=== PATIENT | male | born 1965 | race Caucasian/White ===

== ENCOUNTER 2018-02-16 08:45 | Emergency (ER) | payer BC, OTHER ==
[2018-02-16 09:16] VITALS: TEMP 98
--- NOTE | 2018-02-16 09:24 | ED PDOC ---
Arrival/HPI - General Chief Complaint: Male Genitourinary Time Seen by Provider: 02/16/18 09:18 Historian: Patient - History of Present Illness Narrative History of Present Illness (Text): 02/16/18 09:18 52 y/o male, pmh including dm, nkda, c/o bloody urine started yesterday with no fall or trauma. Pt. stated that he has pink color urine which progress to dark color urine started this morning, no flank or back pain, no nausea or vomiting, no flank pain, no urinary symptoms, no low back pain, no night sweat, no change in food diet or drinks, no other medical or psychological complaints. Past Medical History - Provider Review Nursing Documentation Reviewed: Yes - Infectious Disease Hx of Infectious Diseases: None - Cardiac Hx Cardiac Disorders: No - Pulmonary Hx Respiratory Disorders: No - Endocrine/Metabolic Hx Diabetes Mellitus Type 2: Yes - Hematological/Oncological Hx Blood Disorders: No - Musculoskeletal/Rheumatological Hx Musculoskeletal Disorders: No - Gastrointestinal Hx Gastrointestinal Disorders: No - Genitourinary/Gynecological Hx Genitourinary Disorders: No - Psychiatric Hx Substance Use: No - Anesthesia Hx Anesthesia: No Family/Social History - Physician Review Nursing Documentation Reviewed: Yes Family/Social History: Unknown Family HX Smoking Status: Unknown If Ever Smoked Hx Alcohol Use: No Hx Substance Use: No Allergies/Home Meds Allergies/Adverse Reactions: Allergies No Known Allergies Allergy (Verified 02/16/18 09:12) Home Medications: Home Meds Medication Instructions Recorded Confirmed Ergocalciferol (Vitamin D2) 50,000 unit PO QWK 02/16/18 02/16/18 [Vitamin D2] Folic Acid 1 mg PO DAILY 02/16/18 02/16/18 Glimepiride [amaRYL] 4 mg PO DAILY 02/16/18 02/16/18 Glyburide [Micronase] 5 mg PO DAILY 02/16/18 02/16/18 Lisinopril [Zestril] 2.5 mg PO DAILY 02/16/18 02/16/18 Magnesium Oxide [Magnesium] 400 mg PO DAILY 02/16/18 02/16/18 MetFORMIN [glucoPHAGE] 1,000 mg PO BID 02/16/18 02/16/18 Simvastatin [Zocor] 20 mg PO DAILY 02/16/18 02/16/18 metFORMIN [glucOPHAGE] 500 mg PO DAILY 02/16/18 02/16/18 Review of Systems - Review of Systems Constitutional: absent: Fatigue, Fevers Eyes: absent: Vision Changes ENT: absent: Hearing Changes Respiratory: absent: SOB, Cough Cardiovascular: absent: Chest Pain Gastrointestinal: absent: Abdominal Pain, Nausea, Vomiting Genitourinary Male: Hematuria. absent: Dysuria, Frequency, Urinary Output Changes Musculoskeletal: absent: Arthralgias, Back Pain Skin: absent: Rash, Pruritis, Skin Lesions, Laceration, Ulcer, Cellulitis Neurological: absent: Headache, Dizziness Psychiatric: absent: Anxiety, Depression, Suicidal Ideation Physical Exam Vital Signs Reviewed: Yes Vital Signs Temp Pulse Resp BP Pulse Ox 02/16/18 09:09 98 F 77 16 124/78 97 Temperature: Afebrile Blood Pressure: Normal Pulse: Regular Respiratory Rate: Normal Appearance: Positive for: Well-Appearing, Non-Toxic, Comfortable Pain Distress: None Mental Status: Positive for: Alert and Oriented X 3 - Systems Exam Head: Present: Atraumatic, Normocephalic Pupils: Present: PERRL Extroacular Muscles: Present: EOMI Conjunctiva: Present: Normal Mouth: Present: Moist Mucous Membranes Neck: Present: Normal Range of Motion Respiratory/Chest: Present: Clear to Auscultation, Good Air Exchange. No: Respiratory Distress, Accessory Muscle Use Cardiovascular: Present: Regular Rate and Rhythm, Normal S1, S2. No: Murmurs Abdomen: No: Tenderness, Distention, Peritoneal Signs, Rebound, Guarding Genitourinary Male: Present: Normal External Genitalia, Circumcised Penis, Other (no ecchymosis. ). No: Lesions, Penile Discharge, Testicle Tenderness, Penile Swelling, Masses, Erythema, Hernias, Testicle Swelling Back: Present: Normal Inspection Upper Extremity: Present: Normal Inspection, Normal ROM, Neurovascularly Intact. No: Cyanosis, Edema, Deformity Lower Extremity: Present: Normal Inspection, Normal ROM, Neurovascularly Intact. No: Edema, Deformity Neurological: Present: GCS=15, CN II-XII Intact, Speech Normal, Motor Func Grossly Intact, Gait Normal, Memory Normal Skin: Present: Warm, Dry, Normal Color. No: Rashes Psychiatric: Present: Alert, Oriented x 3, Normal Insight, Normal Concentration Medical Decision Making ED Course and Treatment: 02/16/18 09:28 Differential: Cystitis vs. Renal failure vs. Anemia vs. Food coloring vs. Rhabdomylosis vs. Bladder cancer -labs/ua -Observe and reassess 02/16/18 10:14 -Labs are non-significant except wbc 12.5, afebrile, likely stress induced. -UA show +leukocyte with +wbc, +hematuria, likely cystitis, IV rocephine and urine culture order. -Urine color is clear yellow in the ER, no active bleeding, no blood noted on the underwear and not on the penis meatus either. -Pt. eating and drinking well, afebrile, vitally stable, stable for outpatient follow up. -Discharge home with keflex, stay hydrated, repeat UA after the completion of antibiotic, persistent bloody urine would need urologist follow up to ensure this is not cancerous etiology, follow up with your own pmd within 2 days, return to the ER for any new or worsening signs or symptoms. - Lab Interpretations Lab Results: 02/16/18 09:46 02/16/18 09:46 Lab Results 02/16/18 09:46: Urine Color Yellow, Urine Appearance Clear, Urine pH 6.0, Ur Specific [place] <= 1.005, Urine Protein Trace H, Urine Glucose (UA) 100 H, Urine Ketones Negative, Urine Blood Large H, Urine Nitrate Negative, Urine Bilirubin Negative, Urine Urobilinogen 0.2, Ur Leukocyte Esterase Moderate H, Urine RBC 2 - 5, Urine WBC 25 - 30, Ur Epithelial Cells 0 - 2, Urine Bacteria Small 02/16/18 09:46: WBC 12.5 H, RBC 5.07, Hgb 14.7, Hct 41.5 L, MCV 81.9, MCH 29.0, MCHC 35.4, RDW 12.6, Plt Count 230, MPV 9.3, Gran % 75.7 H, Lymph % (Auto) 12.9 L, [place] % (Auto) 7.2 H, Eos % (Auto) 3.7, Baso % (Auto) 0.5, Gran # 9.42 H, Lymph # (Auto) 1.6, [place] # (Auto) 0.9 H, Eos # (Auto) 0.5, Baso # (Auto) 0.06 02/16/18 09:46: Sodium 140, Potassium 4.9, Chloride 100, Carbon Dioxide 28, Anion Gap 17, BUN 17, Creatinine 0.9, Est GFR ( Amer) > 60, Est GFR (Non- Af Amer) > 60, Random Glucose 193 H, Calcium 9.9, Total Bilirubin 0.5, AST 20, ALT 34, Alkaline Phosphatase 60, Total Creatine Kinase 153, Total Protein 7.6, Albumin 4.7, Globulin 2.9, Albumin/Globulin Ratio 1.6 I have reviewed the lab results: Yes - Medication Orders Current Medication Orders: Ceftriaxone Sodium (Rocephin 1 Gram Ivpb) 1 gm in 100 mls @ 200 mls/hr IVPB STAT STA PRN Reason: Protocol Stop: 02/16/18 10:41 Last Admin: 02/16/18 10:16 Dose: 200 mls/hr eMAR Start Stop Document 02/16/18 10:16 GMD (Rec: 02/16/18 10:16 GMD [id number]) Intravenous Solution Start Date 02/16/18 Start Time 10:16 End Date 02/16/18 End time 10:46 Total Infusion Time 30 - 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 Disposition/Present on Arrival - Present on Arrival Any Indicators Present on Arrival: No History of DVT/PE: No History of Uncontrolled Diabetes: No Urinary Catheter: No History of Decub. Ulcer: No History Surgical Site Infection Following: None - Disposition Have Diagnosis and Disposition been Completed?: Yes Diagnosis: UTI (urinary tract infection), Hematuria Disposition: HOME/ ROUTINE Disposition Time: 10:16 Patient Plan: Discharge Patient Problems: Current Active Problems Problem Status Onset Hematuria Acute UTI (urinary tract infection) Acute Condition: GOOD Additional Instructions: -Discharge home with keflex, stay hydrated, repeat UA after the completion of antibiotic, persistent bloody urine would need urologist follow up to ensure this is not cancerous etiology, follow up with your own pmd within 2 days, return to the ER for any new or worsening signs or symptoms. Prescriptions: Cephalexin [Keflex] 500 mg PO TID #21 capsule Referrals: Denzel Cortez MD [Staff Provider] - Follow up with primary [facility] [place] [[place]] - Follow up with primary Forms: [employer] (Belarusian), WORK NOTE
[2018-02-16 10:03] LABS: BASO # 0.06 K/mm3 (0.0-2.0); BASO % 0.5 % (0.0-3.0); EOS # 0.5 (0.0-0.7); EOS % 3.7 % (1.5-5.0); GRAN # 9.42 (1.4-6.5); GRAN % 75.7 % (50.0-68.0); HEMOGLOBIN 14.7 g/dL (14.0-18.0); LYMPH # 1.6 (1.2-3.4); LYMPH % 12.9 % (22.0-35.0); MEAN CELL VOLUME 81.9 fl (80.0-105.0); MEAN CORPUSCULAR HGB CONC 35.4 g/dl (31.0-37.0); MEAN PLATELET VOLUME 9.3 fl (7.0-11.0); MONO # 0.9 (0.1-0.6); MONO % 7.2 % (1.0-6.0); RBC 5.07 10^6/uL (3.5-6.1); RED CELL DISTRIBUTION WIDTH 12.6 % (11.5-14.5); URINE BILIRUBIN NEGATIVE (NEGATIVE); URINE BLOOD LARGE (NEGATIVE); URINE GLUCOSE (UA) 100 mg/dL (NEGATIVE); URINE LEUKOCYTE ESTERASE MODERATE Leu/uL (NEGATIVE); URINE PROTEIN TRACE mg/dL (<30 mg/dL); URINE UROBILINOGEN 0.2 E.U./dL (<1 E.U./dL); WHITE BLOOD COUNT 12.5 10^3/ul (4.5-11.0)
[2018-02-16 10:04] LABS: URINE APPEARANCE CLEAR (CLEAR); URINE COLOR YELLOW (YELLOW)
[2018-02-16 10:10] LABS: ALB/GLOB RATIO 1.6 (1.1-1.8); ALBUMIN 4.7 g/dL (3.0-4.8); ALT/SGPT 34 U/L (7-56); AST/SGOT 20 U/L (17-59); BLOOD UREA NITROGEN 17 mg/dL (7-21); CALCIUM 9.9 mg/dL (8.4-10.5); GFR AFRICAN-AMERICAN > 60; GFR NON-AFRICAN AMERICAN > 60
[2018-02-16 10:12] LABS: URINE BACTERIA SMALL (NEG); URINE EPITHELIAL CELLS 0 - 2 /hpf (0-5); URINE WBC 25 - 30 /hpf (0-6)
[2018-02-16] MEDS ORDERED: cefTRIAXone 1 gm 1 GM/100 ML BAG IVPB STA (10:12)
[2018-02-16 10:57] VITALS: BP 118/78; PULSE 70; RESP 18; O2SAT 99
== END 2018-02-16 10:57 | disposition home or self-care (01) ==
LOC: ED 08:45
DX: N39.0 Urinary tract infection, site not specified (principal); R31.9 Hematuria, unspecified; E11.9 Type 2 diabetes mellitus without complications
CPT/HCPCS: 80053; 81001; 82550; 85025; 87086; 96365; 99284; J0696

== ENCOUNTER 2018-06-18 19:48 | Observation (INO) | payer OTHER ==
[2018-06-18 20:46] LABS: BASO # 0.06 K/mm3 (0.0-2.0); BASO % 0.7 % (0.0-3.0); EOS # 0.6 (0.0-0.7); EOS % 6.8 % (1.5-5.0); GRAN # 4.21 (1.4-6.5); GRAN % 50.3 % (50.0-68.0); HEMOGLOBIN 13.6 g/dL (14.0-18.0); LYMPH # 3.1 (1.2-3.4); LYMPH % 36.4 % (22.0-35.0); MEAN CELL VOLUME 84.1 fl (80.0-105.0); MEAN CORPUSCULAR HEMOGLOBIN 28.8 pg (25.0-35.0); MEAN CORPUSCULAR HGB CONC 34.3 g/dl (31.0-37.0); MEAN PLATELET VOLUME 9.9 fl (7.0-11.0); MONO # 0.5 (0.1-0.6); MONO % 5.8 % (1.0-6.0); RBC 4.72 10^6/uL (3.5-6.1); RED CELL DISTRIBUTION WIDTH 12.5 % (11.5-14.5); WHITE BLOOD COUNT 8.4 10^3/uL (4.5-11.0)
--- NOTE | 2018-06-18 20:51 | ED PDOC ---
Arrival/HPI - General Chief Complaint: Chest Pain Historian: Patient - History of Present Illness Narrative History of Present Illness (Text): 06/18/18 20:47 52yo male with pmhx of NIDDM, hypertension, hyperlipdemia, who present with complaint of left sided chest pain since earlier today.He describes pain as heaviness and pressure. He did not take any medication. Reports significant familial cardiac history. He denies nausea, vomiting, diaphoresis, dizziness, focal weakness, ripping/tearing upper back pain, abdominal pain, LE edema, calf pain, visual changes, any other complaint. Past Medical History - Provider Review Nursing Documentation Reviewed: Yes - Infectious Disease Hx of Infectious Diseases: None - Cardiac Hx Cardiac Disorders: No - Pulmonary Hx Respiratory Disorders: No - Endocrine/Metabolic Hx Diabetes Mellitus Type 2: Yes - Hematological/Oncological Hx Blood Disorders: No - Musculoskeletal/Rheumatological Hx Musculoskeletal Disorders: No - Gastrointestinal Hx Gastrointestinal Disorders: No - Genitourinary/Gynecological Hx Genitourinary Disorders: No - Psychiatric Hx Substance Use: No - Anesthesia Hx Anesthesia: No Family/Social History - Physician Review Nursing Documentation Reviewed: Yes Family/Social History: Unknown Family HX Smoking Status: Unknown If Ever Smoked Hx Alcohol Use: No Hx Substance Use: No Allergies/Home Meds Allergies/Adverse Reactions: Allergies No Known Allergies Allergy (Verified 06/18/18 20:11) Home Medications: Home Meds Medication Instructions Recorded Confirmed Ergocalciferol (Vitamin D2) 50,000 unit PO QWK 02/16/18 06/18/18 [Vitamin D2] Glimepiride [amaRYL] 4 mg PO DAILY 02/16/18 06/18/18 Glyburide [Micronase] 5 mg PO DAILY 02/16/18 06/18/18 Lisinopril [Zestril] 2.5 mg PO DAILY 02/16/18 06/18/18 Magnesium Oxide [Magnesium] 400 mg PO DAILY 02/16/18 06/18/18 RX: Folic Acid 1 mg PO DAILY 02/16/18 06/18/18 RX: MetFORMIN [glucoPHAGE] 1,000 mg PO BID 02/16/18 06/18/18 Simvastatin [Zocor] 20 mg PO DAILY 02/16/18 06/18/18 Review of Systems - Physician Review All systems were reviewed & negative as marked: Yes - Review of Systems Constitutional: Normal Eyes: Normal ENT: Normal Respiratory: Normal Cardiovascular: Chest Pain Gastrointestinal: Normal Genitourinary Male: Normal Musculoskeletal: Normal Skin: Normal Neurological: Normal Endocrine: Normal Hemo/Lymphatic: Normal Psychiatric: Normal Physical Exam Vital Signs Reviewed: Yes Vital Signs Temp Pulse Resp BP Pulse Ox 06/18/18 20:08 97.6 F 59 L 20 128/91 H 100 Temperature: Afebrile Blood Pressure: Normal Pulse: Regular Respiratory Rate: Normal Appearance: Positive for: Well-Appearing, Non-Toxic, Comfortable Pain Distress: None Mental Status: Positive for: Alert and Oriented X 3 - Systems Exam Head: Present: Atraumatic, Normocephalic Pupils: Present: PERRL Extroacular Muscles: Present: EOMI Conjunctiva: Present: Normal Mouth: Present: Moist Mucous Membranes Neck: Present: Normal Range of Motion Respiratory/Chest: Present: Clear to Auscultation, Good Air Exchange. No: Respiratory Distress, Accessory Muscle Use, Wheezes, Decreased Breath Sounds, Rales, Retracting, Rhonchi Cardiovascular: Present: Regular Rate and Rhythm, Normal S1, S2. No: Murmurs Abdomen: No: Tenderness, Distention, Peritoneal Signs Back: Present: Normal Inspection Upper Extremity: Present: Normal Inspection. No: Cyanosis, Edema Lower Extremity: Present: Normal Inspection. No: Edema Neurological: Present: GCS=15, CN II-XII Intact, Speech Normal Skin: Present: Warm, Dry, Normal Color. No: Rashes Psychiatric: Present: Alert, Oriented x 3, Normal Insight, Normal Concentration Medical Decision Making ED Course and Treatment: 06/19/18 02:03 PT in ED for stated history. He was hemodynamically stable Labs Chest xray EKG ASA EKG Sinus rhythm with PAC @ 62bpm N-stemi Chest xray NAD First CE was negative, but however reported a strong familial cardiac history He was admitted for further evaluation Case was DW Dr. Tariq and pt was admitted to his service Result and plan was DW the pt and he agreed - RAD Interpretation Radiology Orders: 06/18/18 20:11 CHEST PORTABLE [RAD] Stat - Medication Orders Current Medication Orders: Discontinued Medications Aspirin (Aspirin) 325 mg PO STAT STA Stop: 06/18/18 20:12 Last Admin: 06/18/18 20:40 Dose: 325 mg Disposition/Present on Arrival - Present on Arrival Any Indicators Present on Arrival: No History of DVT/PE: No History of Uncontrolled Diabetes: No Urinary Catheter: No History of Decub. Ulcer: No History Surgical Site Infection Following: None - Disposition Have Diagnosis and Disposition been Completed?: Yes Diagnosis: Chest pain Disposition: HOSPITALIZED Disposition Time: 22:05 Patient Plan: Admission Patient Problems: Current Active Problems Problem Status Onset Chest pain Acute Condition: STABLE
[2018-06-18 21:01] LABS: INR 0.95; PARTIAL THROMBOPLASTIN TIME 32.9 Seconds (25.1-36.5); PROTHROMBIN TIME 10.8 SECONDS (9.4-12.5)
[2018-06-18 21:04] LABS: BLOOD UREA NITROGEN 18 mg/dL (7-21); GFR NON-AFRICAN AMERICAN > 60
[2018-06-18 21:05] LABS: ALB/GLOB RATIO 1.5 (1.1-1.8); ALBUMIN 4.3 g/dL (3.0-4.8); ALT/SGPT 36 U/L (7-56); AST/SGOT 24 U/L (17-59); CALCIUM 9.6 mg/dL (8.4-10.5)
[2018-06-18 21:08] LABS: B-TYPE NATRIURETIC PEPTIDE 28.2 pg/mL (0-450); TROPONIN I < 0.01 ng/mL
[2018-06-18 22:06] LABS: D DIMER < 200 ng/mlDDU (0-243)
[2018-06-18] MEDS ORDERED: Dextrose 50% SYRINGE Inj (50 ml) IV PRN (22:07)
[2018-06-18] MEDS: Nitroglycerin 2% Ointment Foilpak UD TOP SCH (23:02)
[2018-06-18 23:29] VITALS: O2SAT 99
[2018-06-19 02:16] VITALS: BMI 24.3
[2018-06-19 02:47] LABS: TROPONIN I < 0.01 ng/mL
[2018-06-19] MEDS: Nitroglycerin 2% Ointment Foilpak UD TOP SCH ×2 (04:20→09:43)
[2018-06-19] MEDS ORDERED: Pantoprazole 40 mg EC Tab PO SCH (06:00)
[2018-06-19 06:41] LABS: BASO # 0.03 K/mm3 (0.0-2.0); BASO % 0.5 % (0.0-3.0); EOS # 0.5 (0.0-0.7); EOS % 7.7 % (1.5-5.0); GRAN # 3.63 (1.4-6.5); GRAN % 55.1 % (50.0-68.0); HEMOGLOBIN 13.5 g/dL (14.0-18.0); LYMPH % 29.6 % (22.0-35.0); MEAN CELL VOLUME 83.6 fl (80.0-105.0); MEAN CORPUSCULAR HEMOGLOBIN 28.4 pg (25.0-35.0); MEAN PLATELET VOLUME 9.7 fl (7.0-11.0); MONO # 0.5 (0.1-0.6); MONO % 7.1 % (1.0-6.0); RBC 4.75 10^6/uL (3.5-6.1); RED CELL DISTRIBUTION WIDTH 12.6 % (11.5-14.5); WHITE BLOOD COUNT 6.6 10^3/uL (4.5-11.0)
[2018-06-19 06:47] LABS: ALB/GLOB RATIO 1.5 (1.1-1.8); ALT/SGPT 39 U/L (7-56); AST/SGOT 24 U/L (17-59); BILIRUBIN,DIRECT 0.1 mg/dL (0.0-0.4); BLOOD UREA NITROGEN 17 mg/dL (7-21); CALCIUM 9.1 mg/dL (8.4-10.5); GFR NON-AFRICAN AMERICAN > 60; HDL CHOLESTEROL 38 mg/dL (29-60)
[2018-06-19 06:55] LABS: TROPONIN I < 0.01 ng/mL
[2018-06-19 06:57] LABS: LDL CHOLESTEROL 48 mg/dL (0-129)
[2018-06-19] MEDS: Insulin Lispro (humaLOG) MEDIUM Coverage SC SCH ×3 (07:58→16:48)
--- NOTE | 2018-06-19 09:27 | CARD ---
APPROVED REPORT Date of service: 06/19/2018 EKG Measurement Heart [id number] <Conclusion> Normal sinus rhythm with sinus arrhythmia Nonspecific T wave abnormality Abnormal ECG
--- NOTE | 2018-06-19 09:29 | CARD ---
APPROVED REPORT Date of service: 06/18/2018 EKG Measurement Heart [id number] <Conclusion> Sinus rhythm with premature atrial complexes Otherwise normal ECG
[2018-06-19] MEDS ORDERED: Magnesium Oxide 400 mg Tab UD PO SCH (10:00)
[2018-06-19] MEDS ORDERED: Enoxaparin 40 mg Syringe SC SCH (10:00)
[2018-06-19] MEDS ORDERED: Non Formulary Medication (Simvastatin [Zocor] 20 MG) PO SCH (10:00)
[2018-06-19] MEDS ORDERED: Sodium Chloride 0.9% 1,000 ML IV SCH (10:30)
--- NOTE | 2018-06-19 10:34 | CON ---
DATE: 06/18/2018 HISTORY OF PRESENT ILLNESS: The patient is a 52-year-old male who is admitted to the hospital with progressive and exertional angina. These were symptoms that was described as pressure-like which is different than any other symptoms he has had before. The patient's cardiac risk factors includes diabetes mellitus, hypertension and hypercholesterolemia. In addition, the patient's younger brother had a documented triple-vessel CAD as well as his older brother who had documented coronary artery disease. SOCIAL HISTORY The patient denies smoking. REVIEW OF SYSTEMS: A 14 point review of systems is reviewed in detail. His symptoms are dominated by new onset exertional angina progressing to symptoms with minimal exertion. PHYSICAL EXAMINATION: VITAL SIGNS: Blood pressure is 120/68, heart rate in the 50s. NECK: Negative JVD. LUNGS: Without rales. HEART: Reveals S1, S2. EXTREMITIES: Without edema. DIAGNOSTIC DATA: EKG shows normal sinus rhythm with diffuse ST-T flattening. LABORATORY DATA: Troponins are negative. Hemoglobin is 13.6. Chemistries were unremarkable. IMPRESSION: 1. New-onset angina. 2. High probability for coronary artery disease. 3. Diabetes mellitus. 4. Hypertension. 5. Hypercholesterolemia. 6. Strong family history for coronary artery disease. Given these findings, the patient will be treated with aspirin and Plavix. We will obtain serial troponins. The patient will need a cardiac catheterization which we will schedule. Carlos Garces MD
--- NOTE | 2018-06-19 11:23 | RAD ---
Date of service: 06/18/2018 HISTORY: chest pain COMPARISON: Chest radiographs 12/05/2016. FINDINGS: LUNGS: No active pulmonary disease. PLEURA: No significant pleural effusion identified, no pneumothorax apparent. CARDIOVASCULAR: No aortic atherosclerotic calcification present. Normal cardiac size. No pulmonary vascular congestion. OSSEOUS STRUCTURES: No significant abnormalities. VISUALIZED UPPER ABDOMEN: Normal. OTHER FINDINGS: None. IMPRESSION: No interval acute cardiopulmonary disease appreciated.
--- NOTE | 2018-06-19 12:25 | HP ---
DATE OF EXAM: 06/19/2018 HISTORY OF PRESENT ILLNESS: The patient is a 52-year-old [place] male who presented to the [facility] Emergency Room complaining of left-sided chest pain, pressure, heaviness at rest and on exertion. The patient's symptoms started less than 24 hours describing the pain and heaviness and pressure-like feeling on the left side of the chest at exertion and rest. CODE STATUS: Full code. LIVING WILL ADVANCE DIRECTIVE: None. ALLERGIES: NONE. HEIGHT: 5 feet 4 inches. BODY WEIGHT: 142 pounds. BMI is 24.4. HOME MEDICATIONS: Drisdol 50,000 units weekly, Zocor 20 mg daily, metformin 1000 mg twice a day, magnesium oxide 400 mg daily, Zestril 2.5 mg daily, Micronase, glyburide 5 mg twice a day, Amaryl 4 mg once or twice a day, folic acid 1 mg daily. The patient is also on vitamin B12 1000 mcg every month. The patient is also on . SOCIAL HISTORY: Denies smoking. Denies alcohol. Denies drug use. Denies communicable transmissible disease. 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 FAMILY HISTORY: Positive for premature coronary artery disease in brothers and father. History of hypertension and diabetes. PAST MEDICAL AND SURGICAL HISTORY: History of hypertension, history of hyperlipidemia, history of type 2 [id number] diabetes mellitus, history of vitamin B12 deficiency, history of hypovitaminosis D, history of dyslipidemia, history of non-insulin requiring diabetes mellitus. The patient is in stretcher #7 in the emergency room. PHYSICAL EXAMINATION: VITAL SIGNS: T-max 97.6, heart rate 59. Telemetry, normal sinus rhythm, blood pressure 128/91 respirations 18, O2 sat 99%. HEENT: Head examination: Normocephalic, atraumatic. HEENT examination shows pinkish conjunctivae. Anicteric sclerae. No oropharyngeal lesion. No neck rigidity. CHEST: Kyphosis. LUNGS: Shows no audible crackle, rales or wheezing. CARDIOVASCULAR: S1, S2, regular rhythm. No murmur, gallop or rub. ABDOMEN: Soft. Positive bowel sound. No palpable hepatosplenomegaly. GENITALIA: Male. RECTAL: Deferred. EXTREMITIES: Shows no pitting edema, no calf tenderness. No Homans' sign. NEUROLOGIC: The patient is alert, awake, oriented x3. Cranial nerves II-XII intact. Gait examination is not tested. MUSCULOSKELETAL: Shows 24.4. VASCULAR: Palpable pulses. DIAGNOSTICS: WBC 8.4, hemoglobin/hematocrit 13.6, 39.7, platelet 227. PT/PTT 10.8, 32.9, D-dimer less than 200. Sodium 138, potassium 4.4, chloride 104, CO2 27, anion gap 11, BUN 18, creatinine 1.0, GFR greater than 60, glucose 89, uric acid 5.0, calcium 9.6, phosphorus, magnesium 1.8. LFTs are normal. Troponin is negative. BNP is negative. EKG shows normal sinus rhythm, with PACs and nonspecific ST changes. The patient was seen in the emergency room by the physician religious assistant. The patient was given aspirin, Lovenox, Plavix 75 mg. The patient was admitted. IMPRESSION AND PLAN: 1. Left-sided chest pain, pressure, heaviness. 2. Exertional and rest angina. 3. Strong family history of coronary artery disease, diabetes, hypertension. 4. History of hypertension, hyperlipidemia, type 2 diabetes mellitus. 5. Mild normocytic anemia. 6. History of vitamin B12 deficiency. 7. Hyperglycemia. 8. History of type 2 diabetes mellitus, hypertension, hyperlipidemia, hypomagnesemia and vitamin B12 deficiency. PLAN: At this time, the patient will be admitted to telemetry with serial cardiac enzymes, serial EKGs, Cardiology evaluation. The patient has been started on aspirin, Plavix, vitamin D, Lipitor, magnesium, nitro paste 1 inch every 6 hours, Tylenol, Zofran p.r.n. The patient is also started on DVT, GI prophylaxis. Fingerstick blood sugar, sliding scale coverage, Humalog sliding scale coverage ordered. Out of bed, HUNTER stockings, SCDs. The patient updated about his condition, diagnosis, treatment plan, management plan at length and all questions concerned answered, which he acknowledged and understand. The patient will be admitted to telemetry for further management, treatment plan. The patient's further management will be dependent upon the patient's clinical condition, hemodynamic status and as per the patient response to therapeutic intervention as per Cardiology evaluation and as per recommendation by all the physician involved in the care of the patient. Dictated and electronically signed, not read. Abhishek Tariq MD [facility] # [id number]
[2018-06-19] MEDS ORDERED: Iodixanol 320 MG/ML 200 ML BOTTLE IV ONE (13:04)
[2018-06-19] MEDS ORDERED: Lidocaine 2% Inj (20ml) ONE (13:04)
[2018-06-19] MEDS ORDERED: Iodixanol 320 MG/ML 100 ML BOTTLE IV ONE (13:04)
[2018-06-19] MEDS ORDERED: Iohexol 350mgl/ml 50 ML ONE (13:04)
[2018-06-19] MEDS ORDERED: Nitroglycerin 50mg in D5W 0 MG/0 ML BOTTLE IV ONE (13:05)
[2018-06-19 13:07] LABS: FOLATE > 20.0 ng/mL
--- NOTE | 2018-06-19 13:08 | PN ---
DATE: 06/19/2018 SUBJECTIVE: The patient is in room 275, bed 2. Also, the patient was seen in the echocardiogram room. The patient's overnight nurse's notes were reviewed. The patient slept well without any adverse events documented. The patient was chest pain free overnight. PHYSICAL EXAMINATION: VITAL SIGNS: T-max 97.9. Telemetry shows sinus rhythm, sinus bradycardia. Asymptomatic, heart rate 52 to 66, respiration 18, O2 sat 99%, blood pressure 120/68, 113/68. HEENT: Head examination, normocephalic, atraumatic. HEENT examination shows pinkish conjunctivae, anicteric sclerae, dry oral mucosa. No neck rigidity. CHEST: Symmetrical. LUNGS: Examination shows no audible crackle, rales, or wheezing. CARDIOVASCULAR: S1, S2, regular rhythm. ABDOMEN: Soft. Positive bowel sounds. No palpable hepatosplenomegaly. No organomegaly noted. GENITALIA: Male. RECTAL: Examination is deferred. EXTREMITIES: No pitting edema, no calf tenderness, no Homans' sign. NEUROLOGIC: The patient is alert, awake, oriented x3. Cranial nerves II-XII intact. GAIT: Independent. VASCULAR: Palpable pulses. LABORATORY DATA: Troponin, all three sets are negative. WBC 6.6, hemoglobin/hematocrit 13.6/39.7, platelet 209. Sodium 140, potassium 4, chloride 105, CO2 28, BUN 17, creatinine 1, glucose 129, calcium 9.1, phosphorus 3.5, magnesium 1.7. LFTs are within normal limits. Triglyceride is 63, cholesterol 81, LDL 48, HDL 38. EKG from 06/18/2018 and 06/19/2018 were reviewed, shows sinus rhythm with nonspecific ST changes. No ST elevation or depression noted.. The patient is in the process of getting an echocardiogram. The patient is awaiting for an echocardiogram and cardiology evaluation. IMPRESSION AND PLAN: 1. Left-sided chest pain, heaviness, pressure feeling. 2. Questionable angina. 3. Nonspecific ST changes on the EKG. 4. Diabetes mellitus. 5. Hyperlipidemia. 6. Hypertension. 7. Hypovitaminosis D. 8. History of vitamin B12 deficiency. 9. Mild normocytic anemia. Plan at this time, the patient is to be continued on nitro paste, aspirin, statins, GI and DVT prophylaxis. The patient is awaiting Cardiology evaluation and echocardiogram. At present, the patient has been symptom-free since the initiation of the treatment in the emergency room including aspirin. The patient received Plavix 75 mg yesterday. The patient is on nitro paste 1 inch every 6 hours, Lipitor 40 mg daily, GI and DVT prophylaxis, fingerstick blood sugar sliding scale coverage. We are also awaiting hemoglobin A1c, PSA, vitamin D 25-hydroxy level. We are awaiting for echocardiogram and Cardiology evaluation. If the patient's subjective and objective data is stable and negative, and if the patient is cleared by Cardiology for discharge and if the patient's echocardiogram is negative, the patient will be considered for discharge soon. The patient updated about his condition, diagnosis, test results, treatment plan, management plan at length and all questions concerned answered, which he acknowledged to understand. Dictated and electronically signed, not read. Abhishek Tariq MD
[2018-06-19] MEDS ORDERED: Midazolam 2 MG/2 ML VIAL ONE ×2 (13:22→13:38)
--- NOTE | 2018-06-19 16:45 | CARD ---
APPROVED REPORT Date of service: 06/19/2018 EXAM: Two-dimensional and M-mode echocardiogram with Doppler and color Doppler. INDICATION Chest Pain 2D DIMENSIONS Left Atrium (2D)3.2 (1.6-4.0cm)IVSd1.1 (0.7-1.1cm) LVDd3.7 (3.9-5.9cm)PWd1.0 (0.7-1.1cm) LVDs2.7 (2.5-4.0cm)FS (%) 27.6 % LVEF (%)54.4 (>50%) M-Mode DIMENSIONS Aortic Root2.40 (2.2-3.7cm)Aortic Cusp Exc.1.80 (1.5-2.0cm) Aortic Valve AoV Peak Ujxdqgmp162.0cm/Dillon Peak GR.5mmHg Mitral Valve E/A ratio0.0 TDI E/Lateral E'0.0E/Medial E'0.0 Tricuspid Valve TR Peak [id number] [id number] Peak Gr.14mmHg [id number] LEFT VENTRICLE The left ventricle is normal size. There is normal left ventricular wall thickness. The left ventricular function is normal.EF-55% There is normal LV segmental wall motion. The left ventricular diastolic function is normal. No left ventricle thrombus noted on this study. There is no ventricular septal defect visualized. There is no left ventricular aneurysm. There is no mass noted in the left ventricle. RIGHT VENTRICLE The right ventricle is normal size. There is normal right ventricular wall thickness. The right ventricular systolic function is normal. ATRIA The left atrium size is normal. The right atrium size is normal. The interatrial septum is intact with no evidence for an atrial septal defect. AORTIC VALVE The aortic valve is thickened but opens well. No aortic regurgitation is present. There is no aortic valvular stenosis. There is no aortic valvular vegetation. MITRAL VALVE The mitral valve is thickened but opens well. Mitral regurgitation is trace. There is no mitral valve stenosis. There is no evidence of mitral valve prolapse. TRICUSPID VALVE The tricuspid valve leaflets are thickened , but open well. There is trace tricuspid regurgitation.RVSP-24 mmof Hg. There is no tricuspid valve stenosis. There is no tricuspid valve prolapse or vegetation. PULMONIC VALVE The pulmonary valve is normal in structure. There is no pulmonic valvular regurgitation. There is no pulmonic valvular stenosis. GREAT VESSELS The aortic root is normal in size. The ascending aorta is normal in size. The pulmonary artery is normal. The IVC is normal in size and collapses >50% with inspiration. PERICARDIAL EFFUSION There is no pleural effusion. There is no pericardial effusion. <Conclusion> Normal Chamber Size. EF-55% Trace MR/TR RVSP-24 mmof hg.
[2018-06-19 18:09] VITALS: TEMP 97.7
--- NOTE | 2018-06-19 19:13 | CARDCATH ---
PROCEDURE DATE: 06/19/2018 HISTORY The patient is a 52-year-old male who presents with 2 weeks of progressive exertional angina. His pretest probability of having significant coronary disease is high given his strong family history, diabetes mellitus as well as hypertension. Cardiac catheterization was recommended. PROCEDURE Left heart catheterization with coronary and left ventriculogram. The right femoral artery was cannulated with 6-[place] sheath. There were no complications. I performed moderate sedation which included the presence of an independent trained observer that assisted in monitoring the patient's level of consciousness and physiologic status. After administration of Versed and fentanyl, my intra-service time was 15 minutes. The findings on catheterization revealed a right dominant circulation. The RCA revealed mild intimal irregularities without significant stenosis. The left main artery was unremarkable. The LAD and diagonal vessels revealed intimal irregularities . The circumflex artery and obtuse marginal branches were free of significant disease. Left ventriculogram was performed in the KUMAR projection. The KUMAR projection, wall motion is within normal limits. Estimated ejection fraction of 70%. Supra-aortic valvular injection revealed no aortic insufficiency. Angio-Seal was used to close the femoral artery site. The patient tolerated the procedure well. In summary, the procedure revealed mild intimal irregularities with no coronary critical lesions. LV function is normal. Given these findings, the patient's treatment should be daily aspirin as well as a cardiac risk reduction program. Carlos Garces MD
[2018-06-19 20:03] VITALS: BP 120/70; PULSE 70; RESP 18
[2018-06-20 10:46] LABS: FRUCTOSAMINE 282 umol/L (190-270)
[2018-06-25] MEDS ORDERED: Ergocalciferol 50,000 Intl Units Cap PO SCH (10:00)
== END 2018-06-19 21:01 | disposition home or self-care (01) ==
LOC: ED 19:48 → ERH 22:18 → 2RSO 06-19 00:56
PROVIDERS: ADMIT Internal Medicine; ATTEND Internal Medicine
DX: I20.9 Angina pectoris, unspecified (principal); I10 Essential (primary) hypertension; E11.65 Type 2 diabetes mellitus with hyperglycemia; D64.9 Anemia, unspecified; E55.9 Vitamin D deficiency, unspecified; E53.8 Deficiency of other specified B group vitamins; E78.00 Pure hypercholesterolemia, unspecified; E78.5 Hyperlipidemia, unspecified; Z79.84 Long term (current) use of oral hypoglycemic drugs; Z82.49 Family history of ischemic heart disease and other diseases of the circulatory system
CPT/HCPCS: 36415; 71045; 80053; 80061; 82248; 82306; 82550; 82607; 82746; 82948; 82985; 83036; 83615; 83735; 83880; 84100; 84153; 84378; 84484; 84550; 85025; 85378; 85610; 85651; 85730; 86140; 93005; 93306; 93458; 99152; 99153; C1760; C1769; C2629; G0378; J1644; J2250; J3010; J7030; Q9966